=== PATIENT | male | born 1935 | race Caucasian/White ===

== ENCOUNTER 2021-07-21 12:36 | Outpatient (CLI) | payer MEDICARE ==
[2021-07-21 15:38] LABS: #Basophils 0.1 10x3/uL (0.0-0.2); #Eosinphils 0.1 10x3/uL (0.0-0.5); #Monocytes 0.6 10x3/uL (0.0-1.1); #Neutrophils 4.7 10x3/uL (1.5-8.4); %Eosinophils 1.7 % (0.0-6.0); %Lymphocytes 21.5 % (18.0-47.0); %Neutrophils 67.5 % (40.0-75.0); Hemoglobin 14.8 g/dL (13.5-17.5); Mean Corpuscular HGB CONC 33.4 g/dL (32.0-36.0); Mean Corpuscular Hemoglobin 29.5 pg (27.0-33.0); Mean Corpuscular Volume 88.4 fl (81.2-95.1); Mean Platelet Volume 10.1 fl (7.4-10.4); Platelet Count 194 10x3/uL (150-450); RBC Distribution Width 12.9 % (11.5-14.5); Red Blood Cell (RBC) Count 5.01 10x6/uL (4.32-5.72); White Blood Cell (WBC) Count 6.9 10x3/uL (3.5-10.5)
[2021-07-21 23:49] LABS: SARS-CoV-2 PCR by NAA Not Detected (NotDetected)
== END 2021-07-21 12:37 | disposition home or self-care (01) ==
LOC: LABBT 12:36
PROVIDERS: ATTEND Orthopaedic Surgery
DX: Z01.818 Encounter for other preprocedural examination (principal); G56.02 Carpal tunnel syndrome, left upper limb; Z20.822 Contact with and (suspected) exposure to COVID-19
CPT/HCPCS: 85025; 93005; U0003; U0005; 93010

== ENCOUNTER 2021-07-26 05:42 | Day surgery (SDC) | payer MEDICARE, OTHER ==
[2021-07-24 10:40] VITALS: BMI 25.1
[2021-07-26] MEDS ORDERED: Lidocaine 1% MPF 2 ML VIAL ONE (06:12)
[2021-07-26] MEDS ORDERED: Xylocaine 1% w/ Epi 1:100K 10 ML VIAL ONE (06:45)
[2021-07-26] MEDS ORDERED: Fentanyl 100 MCG/2 ML VIAL ONE (07:01)
[2021-07-26] MEDS ORDERED: ceFAZolin 2 GM/Dextrose 50 ML IVPB ONE (07:17)
[2021-07-26] MEDS ORDERED: Lidocaine 1% PF 5 ML VIAL ONE (07:34)
[2021-07-26] MEDS ORDERED: Ketorolac Tromethamine 30 MG/ML VIAL ONE (07:34)
== END 2021-07-26 08:57 | disposition home or self-care (01) ==
LOC: SDC 05:42
PROVIDERS: ATTEND Orthopaedic Surgery
PROC: 01N50ZZ Release Median Nerve, Open Approach (ICD-10-PCS; principal; 2021-07-26)
DX: G56.02 Carpal tunnel syndrome, left upper limb (principal); M19.012 Primary osteoarthritis, left shoulder; I10 Essential (primary) hypertension; Z79.82 Long term (current) use of aspirin; Z79.899 Other long term (current) drug therapy
CPT/HCPCS: J0690; J1885; J3010